=== PATIENT | female | born 1990 | race Caucasian/White ===

== ENCOUNTER 2017-07-19 08:15 | Inpatient (IN) | payer MEDICAID ==
[2017-07-19] MEDS ORDERED: Oxytocin in LR* 20 UNITS/1,000 ML BAG IVPB ONE (08:55)
[2017-07-19 08:58] LABS: Hematocrit 33 % (35-47); Hemoglobin 10.8 g/dl (12.0-16.0); Mean Corpuscular HGB Conc 33 g/dl (31-36); Mean Corpuscular Hemoglobin 29 pg (27-31); Mean Corpuscular Volume 89 fL (80-97); Mean Platelet Volume 11 um3 (7.4-10.4); Red Blood Count 3.72 10^6/ul (4.0-5.4); Red Cell Distribution Width 14 % (10.5-15); White Blood Count 11.9 10^3/ul (3.5-10.8)
[2017-07-19] MEDS ORDERED: OBEPIDURAL* 250 ML ONE (10:28)
[2017-07-19] MEDS ORDERED: Famotidine TAB* 20 MG PO PRN (11:11)
[2017-07-19] MEDS ORDERED: EPHEDrine (Pressors)* 50 MG/ML VIAL IV PUSH PRN (11:11)
[2017-07-19] MEDS ORDERED: Phenylephrine IV* 40 MCG/ML 10 ML SYRINGE IV PUSH PRN (11:11)
[2017-07-19] MEDS ORDERED: Sodium Citrate/Citric Acid* 15 ML UDC PO PRN (11:11)
[2017-07-19] MEDS ORDERED: OBEPIDURAL* 250 ML EPIDURAL SCH (12:00)
[2017-07-19] MEDS ORDERED: Ibuprofen TAB* 600 MG PO PRN (17:38)
[2017-07-19] MEDS ORDERED: Tetan/Diph/Pertus SYR(Tdap)* 0.5 ML SYR(BOOSTRIX) use SYR IM ONE (17:38)
[2017-07-19] MEDS ORDERED: Acetaminophen TAB* 325 MG PO PRN (17:38)
[2017-07-19] MEDS ORDERED: Glycerin ADULT SUPP PR PRN (17:38)
[2017-07-19] MEDS ORDERED: Dibucaine 1% 28.35 GM TUBE PR PRN (17:38)
[2017-07-19] MEDS ORDERED: Witch Hazel PAD* JAR TOPICAL PRN (17:38)
[2017-07-19] MEDS ORDERED: Calcium Carbonate CHEW TAB* 500 MG (TUMS) PO SCH (21:00)
[2017-07-20 07:17] LABS: Hematocrit 29 % (35-47); Hemoglobin 9.6 g/dl (12.0-16.0); Mean Corpuscular HGB Conc 33 g/dl (31-36); Mean Corpuscular Hemoglobin 29 pg (27-31); Mean Corpuscular Volume 89 fL (80-97); Mean Platelet Volume 10 um3 (7.4-10.4); Red Blood Count 3.27 10^6/ul (4.0-5.4); Red Cell Distribution Width 14 % (10.5-15); White Blood Count 15.9 10^3/ul (3.5-10.8)
[2017-07-20] MEDS ORDERED: Ferrous Gluconate TAB* 324 MG TAB PO SCH (09:00)
[2017-07-20] MEDS: Docusate CAP* 100 MG PO SCH ×2 (09:21→14:07)
[2017-07-20] MEDS: Simethicone TAB* 80 MG TAB.CHEW PO SCH ×2 (09:22→16:32)
[2017-07-20 16:32] VITALS: BP 123/67
[2017-07-20] MEDS ORDERED: medroxyPROGESTERone ACETATE (DEPOT)* 150 MG/ML 1 ML IM ONE (18:00)
== END 2017-07-20 18:15 | disposition home or self-care (01) | DRG 560 ==
LOC: MCHOBOUT 08:15 → MCHOB 08:22
PROVIDERS: ADMIT Obstetrics & Gynecology; ATTEND Obstetrics & Gynecology
PROC: 10E0XZZ Delivery of Products of Conception, External Approach (ICD-10-PCS; principal; 2017-07-19)
PROC: 10907ZC Drainage of Amniotic Fluid, Therapeutic from Products of Conception, Via Natural or Artificial Opening (ICD-10-PCS; 2017-07-19)
PROC: 3E033VJ Introduction of Other Hormone into Peripheral Vein, Percutaneous Approach (ICD-10-PCS; 2017-07-19)
DX: O24.429 Gestational diabetes mellitus in childbirth, unspecified control (principal); Z68.41 Body mass index [BMI] 40.0-44.9, adult; E66.01 Morbid (severe) obesity due to excess calories; O99.214 Obesity complicating childbirth; O90.81 Anemia of the puerperium; D64.9 Anemia, unspecified; Z3A.39 39 weeks gestation of pregnancy; Z37.0 Single live birth
CPT/HCPCS: 36415; 85025; 86850; 86900; 86901; 90715; A9270-GY; J1050